=== PATIENT | male | born 1995 | race Caucasian/White ===

== ENCOUNTER → 2021-03-01 15:58 | Outpatient (CLI) | payer BC, SELFPAY | PROVIDERS: PCP Family Medicine; Visit Provider Nurse Practitioner Family | DX: U07.1 COVID-19 (principal) | CPT/HCPCS: 87275; 87276; C9803; U0003; U0005 ==

== ENCOUNTER → 2022-06-14 10:30 | Outpatient (CLI) | payer BC, SELFPAY | PROVIDERS: PCP Student in an Organized Health Care Education/Training Program; Visit Provider Student in an Organized Health Care Education/Training Program | DX: J02.9 Acute pharyngitis, unspecified (principal) | CPT/HCPCS: 87070 ==

== ENCOUNTER 2022-06-15 03:25 | Emergency (ER) | payer BC, SELFPAY ==
[2022-06-15 03:27] VITALS: BP 151/70; PULSE 83; RESP 21; TEMP 36.5; O2SAT 98; BMI 40.0
--- NOTE | 2022-06-15 03:53 | XR_ITS ---
PROCEDURE INFORMATION: Exam: XR Chest Exam date and time: 06/15/2022 4:07 AM Age: 27 years old Clinical indication: Patient HX: States congestion worsening at night and cough; Additional info: Productive cough TECHNIQUE: Imaging protocol: Radiologic exam of the chest. Views: 2 views. COMPARISON: No relevant prior studies available. FINDINGS: Lungs: Moderate underinflation. No definite consolidation. Pleural spaces: No significant pleural effusion. No pneumothorax. Heart/Mediastinum: No cardiomegaly. Bones/joints: Mild wedging lower thoracic vertebral bodies, chronic. Soft tissues: Unremarkable. IMPRESSION: No definite acute cardiopulmonary disease.
[2022-06-15 04:01] VITALS: BP 150/89; PULSE 86; RESP 18; O2SAT 97
[2022-06-15 04:31] VITALS: BP 138/93; PULSE 89; RESP 20; O2SAT 97
[2022-06-15 05:30] VITALS: BP 142/98; PULSE 85; O2SAT 96
[2022-06-15 06:14] VITALS: BP 150/98; PULSE 85; RESP 20; TEMP 36.8; O2SAT 99
--- NOTE | 2022-06-15 06:19 | HMH.EDURI ---
Discharge Plan Disposition Patient Disposition: Home, Self-Care Prescriptions Prescriptions: New azithromycin [azithromycin] 250 mg tablet 250 mg PO DIRECTED Qty: 6 0RF Rx Instructions: Take two (2) tablets on day #1, then one (1) tablet day #2 thru #5 No Action methylprednisolone 4 mg tablets,dose pack See Rx Instructions PO PER PKG DIR Qty: 21 0RF Rx Instructions: PO PER PKG DIR Referrals Follow up/Referrals: Provider,Referral, MD [Primary Care Provider] - See instructions Clinical Impressions Clinical Impression: Bronchitis, Conjunctivitis Instructions Patient Instructions: DI for Acute Bronchitis, DI for Conjunctivitis Discharge ED Provider: Mari (ED)Danny URI/Sore Throat HPI General Chief Complaint: Upper Respiratory Infection Stated Complaint: Sore throat,N/V,eyes crusted,reflux Time Seen by Provider: 06/15/22 06:19 Mode of Arrival: Family Vehicle Source of Information: Patient and Medical Record Limitations: No Limitations Description of Symptoms (Recalled from ER Triage Doc. by RN): Pt c/o 4 days of worsening sore throat, sinus & chest congestion, ylw productive cough, and burning reflux. Last night he began to experience bilateral eye redness and ylw drainage that has caused his eyes to crust shut. Denies any SOA, dyspnea, fever, or chills. States he was seen at [facility] yesterday and tested negative for strep and covid however his symtoms have progressed. History of Present Illness HPI Narrative: sore thotat and prod cough and had been seen at [facility] on steroids - has no known exposure and has bilat conj MD Complaint: cough, sore throat and nasal congestion Onset (ago): day(s) Duration: intermittent Severity: moderate Able to tolerate fluids by mouth: Yes Related Data Previous Rx's Medication Instructions Recorded methylprednisolone 4 mg tablets in See Rx Instructions PO PER PKG DIR 06/14/22 a dose pack #21 tabs azithromycin 250 mg tablet 250 mg PO DIRECTED #6 tabs 06/15/22 Allergies Allergy/AdvReac Type Severity Reaction Status Date / Time Penicillins Allergy unknown Verified 06/14/22 10:06 SULFA (SULFONAMIDE) Allergy Intermediate I-RASH Uncoded 06/14/22 10:06 [facility] Disclaimer: The information contained in this section may have been updated after the patient was seen, as this information can be updated by other users. Social History Smoking Status: Never smoker alcohol intake: current substance use type: denies use current occupational status: employed Travel in the last 8 weeks: None household members: family ROS Obtained: Yes All systems reviewed & no additional complaints except as documented Physical Exam General General appearance: alert Head Head exam: normocephalic Eye Eye exam: Present PERRL, EOMI and conjunctival redness ENT ENT exam: Present normal oropharynx and mucous membranes moist Neck Neck exam: Present trachea midline Respiratory Respiratory exam: Absent respiratory distress Cardiovascular Cardiovascular exam: Present regular rate Abdominal Exam Abdominal exam: Present soft Extremities Exam Extremities exam: Present full ROM Neurological Exam Neurological exam: Present alert and CN II-XII intact Psychiatric Psychiatric exam: Present normal affect Skin Skin exam: Absent rash Medical Decision Making Medical Records Medical records reviewed: Yes I reviewed the patient's medical records. Luis Inquiry Pt receiving controlled substance: No Vital Signs: 06/15/22 03:27 06/15/22 04:01 06/15/22 04:31 Temperature 97.7 F Temperature Source Oral Pulse Rate 86 89 Pulse Rate [Right] 83 Respiratory Rate 21 18 20 Blood Pressure 150/89 H 138/93 H Blood Pressure [Right Arm] 151/70 H Blood Pressure Mean 110 102 Blood Pressure Mean [Right Arm] 97 Blood Pressure Source [Right Arm] Automatic Cuff 02 Sat by Pulse Oximetry 98
== END 2022-06-15 06:30 | disposition home or self-care (01) ==
PROVIDERS: Emergency Provider Emergency Medicine
DX: J20.9 Acute bronchitis, unspecified (principal); H10.9 Unspecified conjunctivitis
CPT/HCPCS: 71046; 99283; 99284